=== PATIENT | female | born 1940 | race Caucasian/White ===

== ENCOUNTER → 2020-08-17 | Outpatient (CLI) | payer OTHER ==
[~2020-08-17] MED LIST: BENICAR20 MG PO; CARBIDOPA-LEVO1 EAC9 PO; FUROSEMIDE 20 M20 MG PO; GLIPIZIDE ER2.5 MG PO; GLIPIZIDE5 MG PO; LEVOXYL112 MCG PO; LIPITOR40 MG PO; METFORMIN HCL500 M3 PO; RASAGILINE MESYL1 MG PO; VITAMIN B-121000 MC2 PO; VITAMIN D350 MCG PO; ZYLOPRIM300 MG PO
== END ==
LOC: LAB 09:08
PROVIDERS: ATTEND Otolaryngology Plastic Surgery within the Head & Neck
DX: Z01.812 Encounter for preprocedural laboratory examination (principal); Z20.822 Contact with and (suspected) exposure to COVID-19

== ENCOUNTER 2020-08-20 08:43 | Observation (INO) | payer OTHER ==
[~2020-08-20] VITALS: Ht 157.5 cm; Wt 75.3 kg
--- NOTE | ~2020-08-20 | O ---
[place] [address] OPERATIVE REPORT Name: MARK WELLS Room #: 443-P [facility] MXin#: [id number] Admission: 08/20/20 Attend Phys: Mark Carty MD Discharge: Date of : 44 Report #: [id number] THIS REPORT FOR: cc: Sindhu Vaughn MD,Sindhu Carty,Mark Dwyer MD ~ DATE OF SERVICE: 08/20/2020 PREOPERATIVE DIAGNOSES: 25 mm mass, left parotid gland. 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 POSTOPERATIVE DIAGNOSES: 25 mm mass, left parotid gland. 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 OPERATIONS PERFORMED: 1. Superficial and deep parotidectomy. 2. Facial nerve dissection and preservation x 4 hours. 3. Nerve integrity monitoring x 4 hours. 4. AlloDerm grafting. SURGEON: Mark Carty MD ANESTHESIA: General endotracheal. INDICATIONS: The patient is a 80-year-old female referred by her primary care physician, Dr. Vaughn with a mass in her left parotid. I initially had seen her in the office. Ultrasound had only shown a small hypoechoic nodule in the mid anterior left parotid measuring 4 mm. I reviewed a previous MRI of the brain and CT of head, which clearly showed an abnormal mass that had been missed by the radiologist. I talked with the neuroradiologist, Dr. Tyrone Jama and an addendum was made. This mass measured 24 x 12 x 8 mm on MRI. 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 No malignancy was noted. Recommendations were made for definitive excision. DESCRIPTION OF PROCEDURE: The patient was brought to the operating room and placed supine on the operating table. After adequate general anesthesia was achieved via endotracheal intubation, she was turned 180 degrees with the left face up, which had been marked preoperatively with the patient. Planned incision was marked out as a modified Gene incision and injected with 1% Xylocaine with 1:100,000 epinephrine. As a separate part of the procedure, the XReal Gravity nerve integrity monitor was applied to the left face for continuous intraoperative monitoring of the facial nerve. Needle electrodes were placed in orbicularis ranjit and orbicularis oculi [address] [address] OPERATIVE REPORT Name: MARK WELLS Room #: 443-P [facility]#: [id number] Admission: 08/20/20 Attend Phys: Mark Carty MD Discharge: Date of : 44 Report #: [id number] muscles with ground electrodes in the soft tissue overlying the sternum and contralateral shoulder. Electrode resistance and impedance was measured and found to be acceptable. Threshold and stimulus intensity parameters were set and the patient was monitored for the entirety of the case of approximately 4 hours in order to locate and protect the facial nerve. She was then prepped and draped sterilely. The procedure began with an incision through the skin, carried down to the parotid gland extending behind the tragus and then sweeping into the neck in a modified Gene incision. The skin was elevated superficial to the superficial swati-aponeurotic system (SMAS). This was held forward with 2-0 silks. Dissection then began along the tragus. Tragal pointer was identified as a landmark for the facial nerve and then the soft tissue dissected off the sternocleidomastoid muscle and the tissue reflected forward. The anterior border of the sternocleidomastoid muscle was then identified. Dissection then began at the tragal pointer. The facial nerve was found in its usual anatomic position, exiting the stylomastoid foramen and confirmed with probe stimuli. Beginning with the inferior cervical and marginal mandibular branches this was then dissected with a Dallas dissector and a #12 blade beginning inferiorly and sweeping superiorly. The mass was splaying the marginal mandibular branch and the buccal branch and extended into the deep lobe. This extended with multiple lobed extension right up abutting the main trunk of the facial nerve. This was a very difficult and tedious dissection. In order to safely remove this without rupturing, the superior frontal or zygomatic branches were then dissected and the buccal branch was dissected to their periphery and then the gland swept from inferior to superior and superior to inferior and then anterior to posterior finding the sequential branches and dissecting the facial nerve with tedious dissection until I was isolated on the tumor. This allowed me to then sweep behind the nerve and elevate the deep lobe of the parotid up and off the deep fascia. Multiple vessels were present, which were clamped between Ligaclips and divided. The tumor was then dissected up to the main trunk exiting at the stylomastoid foramen. Tedious dissection then took down the tumor from the main nerve without rupture of the gland. There did seem to be a dissectible plane between the two, but these were very adamant. Once this was finally freed, the final adhesions were taken down medially in the superficial and deep parotid with tumor were removed. This was delivered off the field as specimen to pathology for frozen section. The tumor did not rupture. The wound was then irrigated copiously with saline and hemostasis assured with bipolar cauterization and clip ligature. The main trunk of the facial nerve was then stimulated in all branches, especially inferiorly were found to be intact. At this point, AlloDerm 3 x 7 cm medium thick had been soaking. This was then cut to size to fit into the defect over the raw edge of parotid and sutured in place with a 4-0 chromic. This was inset completely into the muscle. At this point, a 15-Yi Elmer drain was placed through a separate postauricular stab [address] [place] [address] OPERATIVE REPORT Name: MARK WELLS Room #: 443-P [facility]#: [id number] Admission: 08/20/20 Attend Phys: Mark Carty MD Discharge: Date of : 44 Report #: [id number] incision, curled into the wound and then the flaps were returned to anatomic position and then closed with interrupted 4-0 Vicryl deep dermal sutures and 5-0 nylon on skin on the face and 35 wide mary kate on neck. The post-tragal incision was closed with a 5-0 fast absorbing gut. The ear canal was then irrigated and suctioned for any clots. The drain was sutured in place with 2-0 silk. This held suction well. The patient was then returned to anesthesia, awake without difficulty, returned to recovery in good condition. Sponge and needle counts were correct. There were no complications. Blood loss was about 10 mL. The patient will be watched overnight for monitoring and presuming she does well, discharged to home in the morning. Written and verbal discharge instructions and emergency precautions have been given to her family. Frozen section dissection did seem to confirm an oncocytic neoplasm, but final diagnosis was deferred to permanent sections. DISCHARGE MEDICATIONS: Will include clindamycin 300 mg t.i.d. for 10 days, hydrocodone/acetaminophen 7.5/325 one to two q.4-6 hours p.r.n., Phenergan suppository 25 mg 1 per rectum q.4-6 hours p.r.n. She is instructed on light activity and a soft diet. By: 1549 [id number] Mark Carty MD /nt
[2020-08-20 09:17] VITALS: BP 170/72
[2020-08-20] MEDS ORDERED: HYDROCODON-ACE1 EAC7 PO (16:10)
[2020-08-20] MEDS ORDERED: CLEOCIN HCL150 MG PO (16:10)
--- NOTE | 2020-08-20 17:00 | EKG ---
[address] [employer] [place] [address] ELECTROCARDIOGRAM REPORT Name: MARK WELLS Room #: 150-3 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 : 1940 Requested By: Mark Carty Order Number: [id number] MD: Gilberto Gonzalez Measurements Intervals [place] Rate: 91 P: 50 ME: 138 QRS: 19 QRSD: 99 T: -29 QT: 385 QTc: 474 Interpretive Statements Sinus rhythm with atrial premature complexes Borderline repolarization abnormality Baseline wander in lead(s) II Compared to ECG 03/26/2008 14:10:11 Atrial premature complexes are now present Electronically Signed On 08-20-2020 17:00:04 CDT by Gilberto Gonzalez [email or web address] <ELECTRONICALLY SIGNED> By: Gilberto Gonzalez MD, [facility] 08/20/20 2330 1634 1634 Gilberto Gonzalez MD, [facility] /EPI
[2020-08-20 17:30] VITALS: BP 169/94
[2020-08-20 17:45] VITALS: BP 184/85
[2020-08-20 18:00] VITALS: BP 182/87
--- NOTE | 2020-08-20 18:11 | NUR ---
Pt transferred from PACU. Pt a&ox4. Dressing c/d/i. MANJULA drain in place. Pt able to void. Pain controlled. Family at bedside. Admission education and admission history completed. IVF infusing. Call light within reach. Fall precautions in place. Will continue to monitor.
[2020-08-20 18:15] VITALS: BP 178/86
[2020-08-20 20:13] VITALS: BP 175/100
--- NOTE | 2020-08-21 02:18 | NUR ---
ASSUMED PT CARE AT 1900.PT WAS OBSERVED LYING ON HER BED WITH HER EYES CLOSED AT SHIFT CHANGE.PT C/O PAIN TO HER L CHEEK,MANAGED WITH MED.DRSG TO HER L CHEEK DRY AND INTACT WITH MANJULA DRAIN ATTACHED.PT UP WITH ASSIST TO THE BSC,VOIDING WELL.PT ABLE TO MAKE HER NEEDS KNOWN.CALL LIGHT WITHIN REACH.
[2020-08-21 04:39] LABS: CALCIUM 8.2 mg/dL (8.5-10.1); CREATININE 1.6 mg/dL (0.6-1.0); HEMATOCRIT 29.5 % (37.0-47.0); HEMOGLOBIN 9.8 gm/dL (12.0-15.0); MCHC 33.2 g/dL (28.0-37.0); MCV 93.5 fL (80.0-100.0); POTASSIUM 5.4 mmol/L (3.5-5.1); RBC 3.16 mil/uL (4.20-5.00); RDW 14.7 % (10.5-14.5); WBC 8.5 thou/uL (4.0-11.0)
[2020-08-21 09:57] VITALS: BP 123/64
[2020-08-21 12:41] VITALS: BP 123/64
--- NOTE | 2020-08-21 16:22 | NUR ---
PT ASSESSED AT START OF SHIFT. LT NECK INCISION W/ CLEAR DSNG, NO ACTIVE BLEEDING. DRIED BLOODY DRAINAGE. MANJULA DRAIN W/ SM AMT SS DRAINAGE. NONE AT DRAIN SITE. CHECKED W/ DR. BYRNE RE SENDING PT HOME W/ MANJULA DRAIN. PT EDUCATED ON DRAIN CARE. MINIMAL PAIN. UP IN CHAIR MOST OF DAY. DISCHARGED AT THIS TIME DAUGHTER JUST NOW AVAILABLE TO TRANSPORT PT.
== END 2020-08-21 16:18 | disposition home or self-care (01) ==
LOC: OR 08:43 → TBA 08:44 → OR 09:06 → 4S 17:26 → OR 17:26 → 4S 08-21 16:18
PROVIDERS: ADMIT Otolaryngology Plastic Surgery within the Head & Neck; ATTEND Otolaryngology Plastic Surgery within the Head & Neck
DX: K11.8 Other diseases of salivary glands (principal); Z88.0 Allergy status to penicillin; Z88.1 Allergy status to other antibiotic agents; Z88.2 Allergy status to sulfonamides
CPT/HCPCS: 50010; 50101; 50386; 50398; 51412; 52190; 52220; 52225; 52287; 56524; 56526; 56528; 56668; 56760; 57006; 57149; 62110; 62900; 70005